=== PATIENT | female | born 1930 | race Two or more races ===

== ENCOUNTER 2019-06-01 09:10 | Day surgery (SDC) | payer MEDICARE, MEDICAID ==
[2019-06-01] VITALS (8 sets, daily range): BP systolic 122–137; BP diastolic 65–78
[~2019-06-01] VITALS: Ht 157.5 cm; Wt 76.2 kg
[~2019-06-01 09:10] MED LIST: CALCIUM500 M2 PO; DIOVAN80 MG ORAL; LR 1000ml 1,000 ML IVLG SCH; MAXZIDE 37.5 M1 EAC1 PO; MULTIVITAMINS1 EA14 PO; SIMVASTATIN10 MG ORAL
--- NOTE | 2019-06-01 10:14 | Pre-Procedure Note/Attestation ---
Pre-Procedure Note/Attestation Complete Prior to Procedure Planned Procedure: not applicable Procedure Narrative: colonoscopy Indications for Procedure Pre-Operative Diagnosis: anemia Attestation I attest that I discussed the nature of the procedure; its benefits; risks and complications; and alternatives (and the risks and benefits of such alternatives ), prior to the procedure, with the patient (or the patient's legal benefits representative). I attest that, if there was a reasonable possibility of needing a blood transfusion, the patient (or the patient's legal benefits representative) was given the [facility] standardized written summary, pursuant to the Shlomo Jennifer Blood Safety Act ([place] Health and Safety Code # 1645, as amended). I attest that I re-evaluated the patient just prior to the surgery and that there has been no change in the patient's H&P, except as documented below: Rhys Gutierrez MD Jun 01, 2019 10:14
--- NOTE | 2019-06-01 10:15 | Short Stay Surgery H&P ---
History of Present Illness History of Present Illness Chief Complaint see recent dictated office note HPI Chelsey Oakes is a 88 year old female who was admitted on for Colon Screening Patient History Allergies: Coded Allergies: No Known Allergies (Unverified , 04/13/14) Medication History Scheduled Calcium Carbonate (Calcium), 500 MG PO DAILY, (Reported) Multivitamin (Multivitamins), 1 EACH PO DAILY, (Reported) Simvastatin (Zocor), 10 MG ORAL BEDTIME, (Reported) Triamterene/Hydrochlorothiazid (Maxzide 37.5 Mg-25 Mg Tablet), 1 EACH PO DAILY, (Reported) Valsartan (Diovan), 80 MG ORAL DAILY, (Reported) Physical Exam Vital Signs Last Vital Signs Date Time Temp Pulse Resp B/P (MAP) Pulse Ox O2 Delivery O2 Flow Rate FiO2 06/01/19 10:06 97.4 55 18 136/67 96 Room Air Plan Attestation Are the patient's medical conditions optimized for surgery? Rhys Gutierrez MD Jun 01, 2019 10:15
[2019-06-01] MEDS ORDERED: Lidocaine 1% MPF 10mg/ml 5ml ONE (10:20)
[2019-06-01] MEDS ORDERED: Atropine Sulfate 0.4mg/ml inj ONE (10:20)
[2019-06-01] MEDS ORDERED: Propofol 200mg/20ml IV ONE (10:20)
[2019-06-01] MEDS ORDERED: LR 1000ml ONE (10:20)
--- NOTE | 2019-06-01 10:22 | Anethesia Preoperative Eval ---
Anesthesia Pre-op PMH/ROS General Date of Evaluation: Jun 01, 2019 Time of Evaluation: 10:20 Anesthesiologist: sonya ASA Score: ASA 3 Mallampati Score Class I : Soft palate, uvula, fauces, pillars visible Class II: Soft palate, uvula, fauces visible Class III: Soft palate, base of uvula visible Class IV: Only hard plate visible Mallampati Classification: Class II Surgeon: gigi Diagnosis: colon screening Surgical Procedure: colonoscopy Anesthesia History: none Family History: no anesthesia problems Allergies: Coded Allergies: No Known Allergies (Unverified , 04/13/14) Medications: see eMAR Patient NPO?: Yes Past Medical History Cardiovascular: Reports: HTN, other - hypercholesterolemia Gastrointestinal/Genitourinary: Reports: other - colon polyps, diverticulitis, HEENT: Reports: cataract (L), cataract (R) Musculoskeletal/Integumentary: Reports: OA, DJD PSxH Narrative: cataract sx, knee sx, shoulder sxhemorrhoidectomy Anesthesia Pre-op Phys. Exam Physician Exam Last Vital Signs Date Time Temp Pulse Resp B/P (MAP) Pulse Ox O2 Delivery O2 Flow Rate FiO2 06/01/19 10:06 97.4 55 18 136/67 96 Room Air Constitutional: NAD Neurologic: CN 2-12 intact Cardiovascular: RRR Respiratory: CTA Gastrointestinal: S/NT/ND Airway Exam Mallampati Score: Class II MO: limited Neck: flexible TMD: 2fb ROM: limited Anesthesia Pre-op A/P Studies Pre-op Studies: EKG - sinus rhythm, abnormal ecg Risk Assessment & Plan Assessment: asa4 Plan: mac Status Change Before Surgery: No Pre-Antibiotics Drug: Kaela Valdes MD Jun 01, 2019 10:22
--- NOTE | 2019-06-01 10:49 | Endoscopy Procedure Note ---
Endoscopy Procedure Note General Indication for Procedure: anemia Procedures Performed: colonoscopy Operative Findings/Diagnosis: 2 polyps Specimen: yes Pt Tolerated Procedure Well: Yes Estimated Blood Loss: none Anesthesia Anesthesiologist: antonino balderrama Anesthesia: MAC Inserted Devices Implant(s) used?: No Quality Quality of Bowel Preparation: Good Did scope reach the cecum?: Yes Was there any complications?: No GI Core Measures 50 yrs or older w/o bx or poly: No 10yrs. F/U recommended: Yes If not recommended, why?: Above average risk 18 years or older w/prev. colo: Yes <3yrs. since last colonoscopy: No Rhys Gutierrez MD Jun 01, 2019 10:49
--- NOTE | 2019-06-01 11:16 | Immediate Post-Op Evaluation ---
Immediate Post-Op Evalulation Immediate Post-Op Evalulation Procedure: colonoscopy w/bx Date of Evaluation: Jun 01, 2019 Time of Evaluation: 11:04 IV Fluids: 500ml lr Blood Products: none Estimated Blood Loss: negligible Blood Pressure Systolic: 124 Blood Pressure Diastolic: 75 Pulse Rate: 71 Respiratory Rate: 18 O2 Sat by Pulse Oximetry: 100 Temperature (Fahrenheit): 97.8 Pain Score (1-10): 0 Nausea: No Vomiting: No Complications none Patient Status: awake, reacts, patent Hydration Status: adequate Drug: Kaela Valdes MD Jun 01, 2019 11:15
--- NOTE | 2019-06-01 11:17 | 48 Hour Post Anesthesia Eval ---
Post Anesthesia Evaluation Procedure: colonoscopy w/bx Date of Evaluation: Jun 01, 2019 Time of Evaluation: 11:06 Blood Pressure Systolic: 122 0: 78 Pulse Rate: 71 Respiratory Rate: 18 Temperature (Fahrenheit): 97.8 O2 Sat by Pulse Oximetry: 100 Airway: patent Nausea: No Vomiting: No Pain Intensity: 0 Hydration Status: adequate Cardiopulmonary Status: stable Mental Status/LOC: patient returned to baseline Post-Anesthesia Complications: none Follow-up care needed: N/A Kaela Vitale MD Jun 01, 2019 11:17
--- NOTE | 2019-06-01 15:45 | Procedure Note ---
DATE OF PROCEDURE: 06/01/2019 SURGEON: Rhys Gutierrez M.D. PROCEDURE: Colonoscopy with biopsy. ANESTHESIA: Per Dr. Owens. INSTRUMENT: Olympus adult flexible upper colonoscope. INDICATION: Abdominal pain and anemia. REASON FOR PROCEDURE: The procedure, risks, benefits, and possible consequences, including hemorrhage, aspiration, perforation and infection, and alternative treatments, were explained to the patient/legal guardian by Dr. Rhys Gutierrez and the patient/legal guardian understood and accepted these risks. DESCRIPTION OF PROCEDURE: After informed consent was obtained and the patient was adequately sedated, first rectal exam was performed, which was positive for internal hemorrhoids. Then, the scope was advanced from rectum into the cecum, documented by appendix orifice, ileocecal valve, and right upper quadrant palpation. Quality of prep was good. The patient had two polyps in the ascending colon, roughly measured 5 mm each, removed with a cold biopsy forceps technique. There was no further polyp seen in this colonoscopy examination. There was some scattered diverticulosis throughout the colon. Retroflexion of rectum showed evidence of medium-sized internal hemorrhoids. SUMMARY OF FINDINGS: 1. Two colonic polyps removed, see above for details. 2. Diverticulosis. 3. Internal hemorrhoids. RECOMMENDATIONS: 1. Follow up pathology. 2. Repeat colonoscopy in 5 years. 3. Treat for hemorrhoids if symptomatic. Rhys Gutierrez M.D. DR: JOSE CRUZ JOB#: [id number] CC:
--- NOTE | 2019-06-02 12:37 | Cardiology Report ---
APPROVED REPORT EKG Measurement Heart [id number] MD [id number] Sinus bradycardia RSR' or QR pattern in V1 suggests right ventricular conduction delay Borderline ECG
== END 2019-06-01 12:30 | disposition home or self-care (01) ==
LOC: GAS 09:10
DX: R10.9 Unspecified abdominal pain (principal); D64.9 Anemia, unspecified; K63.5 Polyp of colon; K57.90 Diverticulosis of intestine, part unspecified, without perforation or abscess without bleeding; K64.8 Other hemorrhoids; R00.1 Bradycardia, unspecified; Z79.899 Other long term (current) drug therapy; I10 Essential (primary) hypertension; E78.00 Pure hypercholesterolemia, unspecified; M19.90 Unspecified osteoarthritis, unspecified site
CPT/HCPCS: 45380; 93005; J0461; J2704; J7120; 94003; 94150

== ENCOUNTER 2019-06-16 11:02 | Outpatient (CLI) | payer MEDICARE, MEDICAID ==
[~2019-06-16] VITALS: Ht 167.6 cm; Wt 70.8 kg
[~2019-06-16 11:02] MED LIST changes: -LR 1000ml 1,000 ML IVLG SCH
[2019-06-16 12:42] VITALS: BP 131/59
--- NOTE | 2019-06-17 10:51 | General Progress Note ---
Assessment/Plan Assessment/Plan: SUMMARY OF FINDINGS: 1. Two colonic polyps removed, see above for details. 2. Diverticulosis. 3. Internal hemorrhoids. RECOMMENDATIONS: 1. Follow up pathology. 2. Repeat colonoscopy in 5 years. 3. Treat for hemorrhoids if symptomatic. Subjective ROS Limited/Unobtainable: Yes Allergies: Coded Allergies: No Known Allergies (Unverified , 04/13/14) Objective Last 24 Hour Vital Signs Date Time Temp Pulse Resp B/P (MAP) Pulse Ox O2 Delivery O2 Flow Rate FiO2 06/16/19 12:42 97.8 51 16 131/59 (83) 99 General Appearance: alert EENT: normal ENT inspection Neck: supple Cardiovascular: normal rate Respiratory/Chest: decreased breath sounds Abdomen: normal bowel sounds, non tender, soft Extremities: non-tender Rhys Gutierrez MD Jun 17, 2019 10:51
== END 2019-06-16 13:02 | disposition home or self-care (01) ==
LOC: PAN 11:02
DX: K63.5 Polyp of colon (principal); K57.90 Diverticulosis of intestine, part unspecified, without perforation or abscess without bleeding; K64.8 Other hemorrhoids
CPT/HCPCS: 99212